=== PATIENT | female | born 1990 | race Caucasian/White ===

== ENCOUNTER 2016-08-01 01:50 | Inpatient (IN) | payer MEDICAID ==
[~2016-08-01] VITALS: Ht 165.1 cm; Wt 111.8 kg
[~2016-08-01 01:50] MED LIST: ACET500C5 PO
[2016-08-01 02:13] VITALS: Ht 165.1 cm; Wt 111.8 kg
--- NOTE | 2016-08-01 02:13 | PN ---
Date/Time of Note Date/Time of Note DATE: 08/01/16 TIME: 02:10 OB Subjective Subjective Subjective 26 yo P2 @ 37 wks, prior c/d x 2, presents w ctx good FM, no LOF OB Objective Objective Objective VS: 122/77, 69, 19, 98.3 Abdomen- gravid, n/t SVE- 04/16/-3 FHT- Cat I Deshler- irreg ctx Abdomen: WNL Cervical Dilatation: 1cm Effacement: 25% Station: -3 Accelerations: Accelerations Present Decelerations: No Decelerations Varibility: Moderate Contractions on Admission: 6-10 Minutes Apart Intensity: Mild OB Assessment/Plan Other Assessment: 26 yo P2 @ term, presents w ctx, h/o prior c/d x2 reassuring status Other plan: will re-examine in 2 hrs, to see if she is progressing patient is scheduled for repeat c/d at 39 wks IV hydration PEYTON DE GUZMAN MD August 01, 2016 02:13
[2016-08-01] MEDS ORDERED: LACTATED RINGER'S 1,000 ML IV ONE ×2 (02:30→07:00)
[2016-08-01] MEDS ORDERED: TERBUTALINE 1 MG/ML INJ SC ONE (04:30)
[2016-08-01] MEDS ORDERED: OXYTOCIN 30 UNITS/LR 500 ML IV SCH ×2 (07:00→08:30)
[2016-08-01] MEDS ORDERED: METHYLERGONOVINE 0.2 MG INJ IM PRN ×2 (07:00→13:30)
[2016-08-01] MEDS ORDERED: CEFAZOLIN 2 GM/50 ML (PMX) 50 ML IV SCH (07:00)
[2016-08-01] MEDS ORDERED: OXYTOCIN 30 UNITS/LR 500 ML IV PRN ×2 (07:00→13:30)
[2016-08-01] MEDS ORDERED: CARBOPROST 250 MCG INJ IM PRN ×2 (07:00→13:30)
[2016-08-01] MEDS ORDERED: MISOPROSTOL 200 MCG TAB PR PRN ×2 (07:00→13:30)
[2016-08-01 08:18] LABS: ADD SCAN DIFF NO
[2016-08-01 08:22] LABS: BASOPHILS % 0.2 % (0.0-2.0); EOSINOPHILS # 0.4 10^3/ul (0.0-0.5); EOSINOPHILS % 2.7 % (0.0-7.0); HEMATOCRIT 34.4 % (37.0-47.0); HEMOGLOBIN 11.3 g/dl (12.0-16.0); LYMPHOCYTES # 2.1 10^3/ul (0.8-2.9); LYMPHOCYTES % 16.1 % (15.0-51.0); MEAN CORPUSCULAR HEMOGLOBIN 29.2 pg (29.0-33.0); MEAN CORPUSCULAR HGB CONC 32.8 g/dl (32.0-37.0); MEAN CORPUSCULAR VOLUME 88.9 fl (82.0-101.0); MEAN PLATELET VOLUME 11.1 fl (7.4-10.4); MONOCYTE # 0.8 10^3/ul (0.3-0.9); MONOCYTES % 6.1 % (0.0-11.0); NEUTROPHIL # 9.5 10^3/ul (1.6-7.5); NEUTROPHILS % 74.4 % (39.0-77.0); PLATELET COUNT 209 10^3/UL (140-415); RED BLOOD COUNT 3.87 10^6/ul (4.20-5.40); RED CELL DISTRIBUTION WIDTH 14.3 % (11.5-14.5); WHITE BLOOD COUNT 12.8 10^3/ul (4.8-10.8)
[2016-08-01 08:24] LABS: INR 0.91; PROTIME 12.2 Sec (12.2-14.2)
[2016-08-01 08:25] LABS: PARTIAL THROMBOPLASTIN TIME 27.2 Sec (25.0-35.0)
[2016-08-01] MEDS ORDERED: LACTATED RINGER'S 1,000 ML IV SCH (08:30)
[2016-08-01] MEDS ORDERED: EPHEDrine SULFATE 50 MG/5 ML SYG ONE (09:17)
[2016-08-01] MEDS ORDERED: ONDANSETRON 4 MG INJ ONE (09:17)
[2016-08-01] MEDS ORDERED: OXYTOCIN 30 UNITS/LR 500 ML IV ONE (09:17)
[2016-08-01] MEDS ORDERED: OXYTOCIN 10 UNIT INJ ONE (09:17)
[2016-08-01] MEDS ORDERED: morphine SULFATE/PF (10 MG/10 ML) INJ ONE (09:17)
[2016-08-01] MEDS ORDERED: METOCLOPRAMIDE 10 MG INJ ONE (09:17)
--- NOTE | 2016-08-01 09:34 | HP ---
Date/Time of Note Date/Time of Note DATE: 08/01/16 TIME: 09:25 OB - History Hx of Present Free Text/Dictation 26 years old female 3 para 2 EDC of August 17, 2016 history of 2 previous in active labor admitted to [facility] being prepared to undergo repeat for the third time she has been scheduled for the surgery when she is 39 weeks, patient had requested and signed consent for bilateral tubal ligation, failure rate of tubal ligation increased risk of ectopic future failure to conceive has been discussed with the patient also the complication of surgery including bowel bladder injury wound infection , hemorrhage has been discussed with her and she is willing to go ahead with the procedure Estimated Due Date: August 17, 2016 : 3 Para: 2 Care: Good Care Ultrasounds: Normal mid trimester US Obstetrical Complications: None Medical Complications: None Past Family/Social History * Past Medical, Surgical, Family and Obstetric Histories reviewed from chart. Rubella: immune RPR/VDRL: Negative GBS Status: Negative HBsAG: Negative OB Admission Exam Physical Exam HEENT: WNL Heart: Rhythm Normal Extremities: Normal Cervical Dilatation: 1cm Effacement: 50% Station: -1 Membranes: Intact Heart Rate: 130's Accelerations: Accelerations Present Decelerations: No Decelerations Varibility: Moderate Contractions on Admission: < 5 Minutes Apart Intensity: Moderate Last 72 hours Lab Results CBC & BMP 08/01/16 02:25 OB Assessment/Plan Reason for admission: other (Repeat at 37 weeks and 5 days in active labor, bilateral tubal ligation) Plan: Section, Other (Repeat for the third time bilateral tubal ligation) SHARAD FRAGA MD August 01, 2016 09:34
[2016-08-01] MEDS ORDERED: MIDAZOLAM 1 MG/ML 2 ML INJ ONE ×2 (09:52→10:06)
[2016-08-01] MEDS ORDERED: KETAMINE 500 MG INJ ONE (10:02)
[2016-08-01] MEDS ORDERED: HYDROmorphONE 1 MG/ML SYG IV PRN ×2 (10:30)
[2016-08-01] MEDS ORDERED: NALOXONE (0.4 MG/ML) INJ IV PRN (10:30)
[2016-08-01] MEDS ORDERED: EPHEDrine SULFATE 50 MG/5 ML SYG IV PRN (10:30)
[2016-08-01] MEDS ORDERED: morphine SULFATE/PF (10 MG/10 ML) INJ SPINAL ONE (10:30)
[2016-08-01] MEDS ORDERED: morphine 2 MG INJ IV PRN ×2 (10:30)
[2016-08-01] MEDS ORDERED: DIPHENHYDRAMINE 50 MG INJ IV PRN (10:30)
[2016-08-01] MEDS ORDERED: ONDANSETRON 4 MG INJ IV PRN (10:30)
[2016-08-01] MEDS: KETOROLAC 30 MG INJ IV PRN (12:35)
[2016-08-01 13:05] VITALS: BP 114/62; PULSE 94; RESP 18
[2016-08-01] MEDS ORDERED: OXYCODONE/ACETAMINOPHEN (5/325) TAB PO PRN (13:30)
[2016-08-01] MEDS ORDERED: LANOLIN 7 GM TUBE TOP PRN (13:30)
[2016-08-01] MEDS ORDERED: ACETAMINOPHEN/CODEINE #3 TAB PO PRN ×2 (13:30)
[2016-08-01] MEDS ORDERED: CEFAZOLIN 1 GM/50 ML (PMX) 50 ML IVPB SCH (13:30)
[2016-08-01] MEDS: OXYTOCIN 30 UNITS/LR 500 ML IV SCH ×2 (15:53→20:57)
[2016-08-01 16:16] VITALS: BP 100/58; PULSE 63; RESP 17
--- NOTE | 2016-08-01 19:56 | OPR ---
DATE OF OPERATION: 08/01/2016 PREOPERATIVE DIAGNOSES: 1. Intrauterine at 38 weeks and 3 days. 2. History of previous section. 3. Request for bilateral tubal ligation at the time of section. POSTOPERATIVE DIAGNOSIS: 1. Intrauterine at 38 weeks and 3 days. 2. History of previous section. 3. Request for bilateral tubal ligation at the time of section. OPERATION DIAGNOSES: 1. Intrauterine at term. 2. History of previous section. PROCEDURE: Repeat transverse low cervical section, bilateral tubal ligation. SURGEON: Sharad Spencer MD CONTRACT PROJECT MANAGER: Maria Elena Hughes MD. ANESTHESIA: Spinal. ANESTHESIOLOGIST: Dr. Raymundo. FINDINGS: Live baby boy, 9 and 9. Baby weighed 3455 grams. DETAILS OF THE PROCEDURE: Under satisfactory spinal anesthesia, the patient was prepped and draped and placed in supine position, tilted to the left. Pfannenstiel incision was made, carried through the subcutaneous tissue. Bleeders brought under control with electrocautery. Fascia incised to the length of the incision. Rectus muscle divided in midline. Peritoneum exposed, entered through a t ransverse incision. Exploration of abdomen: Gravid uterus at term, normal appearing tubes and ovar ies. Bladder flap was developed. Transverse incision was made in the lower segment of the uterus. Amniotic sac ruptured. Clear amniotic fluid noted. Live baby boy was delivered from unengaged doc reza. Nasal oropharyngeal suction was performed. Baby handed to the team for immediate att ention. The patient received 20 units of Pitocin. Placenta delivered manually intact. Uterine cav ity cleaned with wet sponge and drainage established. Uterus closed in 2 layers using Monocryl #1 i n continuous fashion. Bilateral tubal ligation performed by identifying the ampullar section of the right fallopian tube. A loop was made. Suture material used #0 plain catgut was reinforced with the same suture material . Top of the loop 3/4 of inch was excised and the cut end of the tube was cauterized and the specim en submitted to pathology. The same procedure performed for the opposite side. Peritoneal cavity i rrigated with warm saline. Sponge, needle, and instrument reported to be correct. Abdominal perito neum closed with 2-0 chromic catgut continuously. Rectus muscle approximated with 3 interrupted 2-0 chromic catgut. Fascia closed with #1 PDS in a continuous fashion. Subcutaneous tissue irrigated with warm saline and approximated with interrupted 2-0 chromic catgut. Skin closed with gabriele. E stimated blood loss 600 mL. Urine bag contained 200 mL of clear urine. Patient tolerated procedure well, transferred to recovery room in good condition. Dictated By: SHARAD JARQUIN/VINITA Conf#: [id number] DID#: [id number]
[2016-08-01 20:00] VITALS: BP 106/57; PULSE 70; RESP 20
[2016-08-01] MEDS: SENNA/DOCUSATE NA (8.6MG/50MG) TAB PO SCH (21:00)
[2016-08-02 00:30] VITALS: BP 110/62; PULSE 77; RESP 20
[2016-08-02] MEDS: OXYTOCIN 30 UNITS/LR 500 ML IV SCH ×4 (01:43→17:21)
[2016-08-02 05:00] VITALS: BP 111/55; PULSE 90; RESP 20
[2016-08-02] MEDS: KETOROLAC 30 MG INJ IV PRN (05:14)
[2016-08-02] MEDS: LACTATED RINGER'S 1,000 ML IV SCH ×2 (05:22→13:30)
[2016-08-02 07:59] LABS: ADD SCAN DIFF NO
[2016-08-02 08:02] LABS: BASOPHILS % 0.2 % (0.0-2.0); EOSINOPHILS # 0.1 10^3/ul (0.0-0.5); HEMATOCRIT 28.3 % (37.0-47.0); HEMOGLOBIN 9.2 g/dl (12.0-16.0); LYMPHOCYTES # 1.2 10^3/ul (0.8-2.9); LYMPHOCYTES % 10.7 % (15.0-51.0); MEAN CORPUSCULAR HEMOGLOBIN 28.6 pg (29.0-33.0); MEAN CORPUSCULAR HGB CONC 32.5 g/dl (32.0-37.0); MEAN CORPUSCULAR VOLUME 87.9 fl (82.0-101.0); MEAN PLATELET VOLUME 10.7 fl (7.4-10.4); MONOCYTE # 0.7 10^3/ul (0.3-0.9); MONOCYTES % 6.5 % (0.0-11.0); NEUTROPHIL # 8.7 10^3/ul (1.6-7.5); NEUTROPHILS % 81.1 % (39.0-77.0); PLATELET COUNT 162 10^3/UL (140-415); RED BLOOD COUNT 3.22 10^6/ul (4.20-5.40); WHITE BLOOD COUNT 10.7 10^3/ul (4.8-10.8)
[2016-08-02 09:00] VITALS: BP 92/49; PULSE 85; RESP 18
[2016-08-02] MEDS: SENNA/DOCUSATE NA (8.6MG/50MG) TAB PO SCH ×2 (09:57→21:06)
[2016-08-02 12:08] VITALS: BP 101/51; PULSE 93; RESP 18
[2016-08-02] MEDS: IBUPROFEN 600 MG TAB PO SCH ×3 (12:08→23:38)
--- NOTE | 2016-08-02 12:53 | PN ---
Date/Time of Note Date/Time of Note DATE: 08/02/16 TIME: 12:52 OB Subjective Subjective Subjective Post day 1 VSs afebrile abdomen soft bowel sounds mild abdominal distention lochia moderate uterus firm extremity normal ambulation recommended SHARAD FRAGA MD August 02, 2016 12:53
[2016-08-02] MEDS: OXYCODONE/ACETAMINOPHEN (5/325) TAB PO PRN ×3 (13:01→22:27)
[2016-08-02 15:55] VITALS: BP 101/59; PULSE 74; RESP 18
[2016-08-02 19:45] VITALS: BP 108/54; PULSE 70; RESP 19
[2016-08-03 03:40] VITALS: BP 108/55; PULSE 79; RESP 18
[2016-08-03] MEDS: IBUPROFEN 600 MG TAB PO SCH ×3 (05:41→18:13)
[2016-08-03 07:45] VITALS: BP 88/47; PULSE 80; RESP 17
[2016-08-03] MEDS: SENNA/DOCUSATE NA (8.6MG/50MG) TAB PO SCH ×2 (09:24→21:08)
[2016-08-03] MEDS: OXYCODONE/ACETAMINOPHEN (5/325) TAB PO PRN ×2 (10:27→15:56)
--- NOTE | 2016-08-03 10:27 | PN ---
Date/Time of Note Date/Time of Note DATE: 08/03/16 TIME: 10:26 OB Subjective Subjective Subjective Post day 2 Afebrile VSs, abdomen soft, uterus firm, incision dry, bowel sounds present, patient able to pass flatus, ambulation encouraged SHARAD FRAGA MD August 03, 2016 10:27
[2016-08-03] MEDS ORDERED: NA PHOSPHATE/BIPHOS 133 ML ENEMA PR ONE (10:30)
[2016-08-03 16:00] VITALS: BP 109/51; PULSE 62; RESP 18
[2016-08-03 20:00] VITALS: BP 113/57; PULSE 60; RESP 20
[2016-08-04] MEDS: IBUPROFEN 600 MG TAB PO SCH ×3 (00:02→12:32)
[2016-08-04 04:00] VITALS: BP 105/53; PULSE 70; RESP 19
[2016-08-04 08:10] VITALS: BP 102/60; PULSE 67; RESP 18
[2016-08-04] MEDS: SENNA/DOCUSATE NA (8.6MG/50MG) TAB PO SCH (08:57)
[2016-08-04] MEDS ORDERED: DIPHTH/TET/ACEL PERTUSS (ADULT) 0.5 ML VIAL IM* ONE (09:00)
[2016-08-04 16:00] VITALS: BP 115/69; PULSE 66; RESP 20
--- NOTE | 2016-08-04 16:32 | PD.PPDC ---
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
--- NOTE | 2016-08-04 16:35 | DS ---
Date/Time of Note Date/Time of Note DATE: 08/04/16 TIME: 16:33 Discharge Summary Admission/Discharge Info Admit Date/Time August 01, 2016 at 06:50 Discharge Date/Time August 04, 2016 at 1630 Final Diagnosis Post repeat day 3 Patient Condition: Good Procedures Repeat Hx of Present Illness with history of previous C-sections Hospital Course Satisfactory uneventful Home Meds Active Scripts Acetaminophen* (Tylophen*) 500 Mg Capsule, 1 CAP PO Q6H Y for PAIN AND OR ELEVATED TEMP, #20 CAP Prov:MAYRA GARCIA NP 01/15/16 Reported Medications [none] No Conflict Check 07/28/10 Follow-up Plan Post instructions given recommended to make appointment with clinic in 4 days to discontinue gabriele Primary Care Provider Care Physician No Primary SHARAD FRAGA MD August 04, 2016 16:35
== END 2016-08-04 17:30 | disposition home or self-care (01) | DRG 765 ==
LOC: L-D 01:50 → OBT 01:50 → L-D 06:50 → PP1 13:08
PROVIDERS: ADMIT Obstetrics & Gynecology; ATTEND Obstetrics & Gynecology
PROC: 10D00Z1 Extraction of Products of Conception, Low, Open Approach (ICD-10-PCS; principal; 2016-08-01 08:00)
DX: O34.211 Maternal care for low transverse scar from previous cesarean delivery (principal); Z68.41 Body mass index [BMI] 40.0-44.9, adult; O99.214 Obesity complicating childbirth; E66.01 Morbid (severe) obesity due to excess calories; Z3A.38 38 weeks gestation of pregnancy; Z37.0 Single live birth
CPT/HCPCS: 36415; 85025; 85610; 85730; 86592; 86850; 86900; 86901; 87340; 88302; 88307; 90715; 96360; 96361; 96372; 99464; G0463; J0690; J1885; J2250; J2274; J2405; J2590; J2765; J3105; J7120